=== PATIENT | male | born 1985 | race Two or more races ===

== ENCOUNTER 2018-11-11 13:54 | Emergency (ER) | payer SELFPAY ==
[~2018-11-11] VITALS: Ht 167.6 cm; Wt 102.1 kg
[2018-11-11 15:26] VITALS: BP 132/85
== END 2018-11-11 16:38 | disposition home or self-care (01) ==
LOC: ER 13:54
DX: S39.012A Strain of muscle, fascia and tendon of lower back, initial encounter (principal); V43.52XA Car driver injured in collision with other type car in traffic accident, initial encounter; Y93.89 Activity, other specified; Y99.8 Other external cause status; Y92.410 Unspecified street and highway as the place of occurrence of the external cause

== ENCOUNTER → 2018-11-11 | Emergency (ER) | payer OTHER | END | disposition left against medical advice (07) | LOC: ER 01:18 | DX: Z04.1 Encounter for examination and observation following transport accident (principal); Z53.21 Procedure and treatment not carried out due to patient leaving prior to being seen by health care provider; V89.2XXA Person injured in unspecified motor-vehicle accident, traffic, initial encounter; Y93.89 Activity, other specified; Y99.8 Other external cause status; Y92.89 Other specified places as the place of occurrence of the external cause ==

== ENCOUNTER 2023-04-04 16:47 | Inpatient (IN) | payer OTHER ==
[~2023-04-04] VITALS: Ht 170.2 cm; Wt 112.4 kg
[2023-04-04 17:16] LABS: Basophils # (auto) 0.1 10 ^3/uL (0-0.2); Basophils % (auto) 0.5 % (0.0-2.0); Eosinophils # (auto) 0.4 10 ^3/uL (0-0.8); Eosinophils % (auto) 3.2 % (0.0-7.0); Hematocrit 50.2 % (41.0-53.0); Hemoglobin 16.4 g/dL (13.5-17.5); Lymphocytes # (auto) 3.8 10 ^3/uL (0.4-5.4); Lymphocytes % (auto) 30.4 % (10.0-50.0); Mean Corpuscular Hemoglobin 27.8 pg (28.0-32.0); Mean Corpuscular Hgb Conc. 32.7 g/dL (32.0-36.0); Mean Corpuscular Volume 84.9 fL (80.0-100.0); Monocytes # (auto) 0.8 10 ^3/uL (0-1.3); Monocytes % (auto) 6.1 % (0.0-12.0); Neutrophils # (auto) 7.5 10 ^3/uL (1.6-8.6); Neutrophils % (auto) 59.8 % (37.0-80.0); Nucleated Red Blood Cells % 0.2 %; Red Blood Cells 5.91 10^6/uL (4.5-5.90); Red Cell Distribution Width 14.7 % (11.8-14.3); White Blood Cell 12.5 10^3/uL (4.4-10.8)
[2023-04-04 17:31] LABS: Albumin 3.5 g/dL (3.4-5.0); BUN/Creatinine Ratio 16.2 (10.0-20.0); Calcium 8.7 mg/dL (8.5-10.1)
[2023-04-04 17:34] LABS: Bilirubin, Total 0.4 mg/dL (0.2-1.0); Total Protein 7.7 g/dL (6.4-8.2)
[2023-04-04] MEDS ORDERED: dilTIAZem 25 MG/5 ML VIAL IV ONE (18:15)
[2023-04-04] MEDS ORDERED: SODIUM CHLORIDE 0.9% 500 ML IV ONE (18:15)
[2023-04-04] MEDS: dilTIAZem 125mg/125ml BAG KIT 100 ML IV ONE ×2 (18:30→19:04)
[2023-04-04] MEDS ORDERED: dilTIAZem 125 MG/25ML INJ VIAL IV ONE (18:30)
[2023-04-04 20:53] LABS: Urine Bacteria NONE SEEN /hpf (None Seen); Urine Blood 1+ /uL (Negative); Urine Specific Gravity 1.019 (1.001-1.035); Urine WBC 2 /hpf (0 - 3)
[2023-04-04] MEDS ORDERED: HYDROcodone-ACET 5/325MG TAB PO PRN (21:15)
[2023-04-04] MEDS ORDERED: ACETAMINOPHEN 325 MG TAB PO PRN (21:15)
[2023-04-04] MEDS ORDERED: cefTRIAXone 1GM/50ML D5W 50 ML IV ONE (21:15)
[2023-04-04] MEDS ORDERED: DEXTROSE (50%) 50ML SYRG IV PRN (21:15)
[2023-04-04] MEDS ORDERED: MORPHINE SULFATE INJ 2 MG/ml SYRG IV PRN ×2 (21:15→23:30)
[2023-04-04] MEDS ORDERED: DOCUSATE SOD 100 MG CAP PO PRN (21:15)
[2023-04-04] MEDS ORDERED: ONDANSETRON HCL 4 MG/2 ML VIAL IV PRN (21:15)
[2023-04-04] MEDS ORDERED: hydrALAZINE HCL 20 MG/ML VL IV PRN (21:15)
[2023-04-04] MEDS: ACCU-CHEK COMFORT CURVE STRIP VI SCH (22:02)
[2023-04-04] MEDS: InsuLIN REG 1unit/0.01ml Soln (100units/ml) SC SCH (22:02)
[2023-04-04] MEDS: ATORVASTATIN 20 MG TAB PO SCH (22:38)
[2023-04-04] MEDS: SODIUM CHLOR 0.9% PF (SALINE LOCK) 10ML VIAL/SYR IV SCH (22:38)
[2023-04-04] MEDS ORDERED: NITROGLYCERIN 0.4 MG SL TAB SL PRN (23:30)
[2023-04-05] MEDS ORDERED: dilTIAZem 125mg/125ml BAG KIT 125 ML IV ONE (05:15)
[2023-04-05] MEDS ORDERED: dilTIAZem 125mg/125ml BAG KIT 100 ML IV SCH (05:45)
[2023-04-05] MEDS: SODIUM CHLOR 0.9% PF (SALINE LOCK) 10ML VIAL/SYR IV SCH ×3 (05:50→21:30)
[2023-04-05 06:14] LABS: Basophils # (auto) 0 10 ^3/uL (0-0.2); Basophils % (auto) 0.4 % (0.0-2.0); Eosinophils # (auto) 0.3 10 ^3/uL (0-0.8); Eosinophils % (auto) 2.8 % (0.0-7.0); Hematocrit 46.7 % (41.0-53.0); Hemoglobin 15.5 g/dL (13.5-17.5); Lymphocytes # (auto) 3.1 10 ^3/uL (0.4-5.4); Lymphocytes % (auto) 34.1 % (10.0-50.0); Mean Corpuscular Hemoglobin 28.1 pg (28.0-32.0); Mean Corpuscular Hgb Conc. 33.3 g/dL (32.0-36.0); Mean Corpuscular Volume 84.5 fL (80.0-100.0); Monocytes # (auto) 0.7 10 ^3/uL (0-1.3); Monocytes % (auto) 7.5 % (0.0-12.0); Neutrophils % (auto) 55.2 % (37.0-80.0); Nucleated Red Blood Cells % 0.1 %; Red Blood Cells 5.52 10^6/uL (4.5-5.90); Red Cell Distribution Width 14.3 % (11.8-14.3); White Blood Cell 9.1 10^3/uL (4.4-10.8)
[2023-04-05] MEDS: ACCU-CHEK COMFORT CURVE STRIP VI SCH ×4 (06:44→21:30)
[2023-04-05] MEDS: InsuLIN REG 1unit/0.01ml Soln (100units/ml) SC SCH ×4 (06:44→21:30)
[2023-04-05 06:45] LABS: Potassium 3.9 mmol/L (3.5-5.1)
[2023-04-05 06:58] LABS: Albumin 3.5 g/dL (3.4-5.0); BUN/Creatinine Ratio 18.2 (10.0-20.0); Bilirubin, Total 0.4 mg/dL (0.2-1.0); Calcium 8.3 mg/dL (8.5-10.1); Total Protein 6.8 g/dL (6.4-8.2)
[2023-04-05] MEDS: FAMOTIDINE (10MG/ML) 2ML VL IV SCH (09:37)
[2023-04-05] MEDS: ASPirin 81 mg TAB PO SCH (09:37)
[2023-04-05 19:26] LABS: Amphetamine Screen, Urine NEGATIVE (NEGATIVE); Barbiturate Scree,Urine NEGATIVE (NEGATIVE); Cannabinoid Screen, Urine NEGATIVE (NEGATIVE)
[2023-04-05 19:29] LABS: Alcohol, Urine < 3.0 mg/dL (0-10); Benzodiazephine Screen, Urine NEGATIVE (NEGATIVE); Cocaine Screen, Urine NEGATIVE (NEGATIVE); Opiate Scree,Urine NEGATIVE (NEGATIVE); Phencyclidine Screen, Urine NEGATIVE (NEGATIVE)
[2023-04-05] MEDS ORDERED: cefTRIAXone 1GM/50ML D5W 50 ML IV SCH (21:00)
[2023-04-05] MEDS: ATORVASTATIN 20 MG TAB PO SCH (21:25)
[2023-04-05 21:33] VITALS: BP 142/72
[2023-04-05 22:00] VITALS: BP 142/87
[2023-04-06] MEDS ORDERED: HYDR25TA4 PO (00:37)
[2023-04-06] MEDS ORDERED: LISI-716 PO (00:37)
[2023-04-06 05:00] VITALS: BP 123/82
[2023-04-06] MEDS: SODIUM CHLOR 0.9% PF (SALINE LOCK) 10ML VIAL/SYR IV SCH ×3 (05:47→21:28)
[2023-04-06] MEDS: ACCU-CHEK COMFORT CURVE STRIP VI SCH ×2 (06:13→11:35)
[2023-04-06] MEDS: InsuLIN REG 1unit/0.01ml Soln (100units/ml) SC SCH ×2 (06:13→11:30)
[2023-04-06 07:05] LABS: BUN/Creatinine Ratio 21.1 (10.0-20.0); Calcium 8.2 mg/dL (8.5-10.1); Magnesium 2.3 mg/dL (1.6-2.6); Potassium 3.6 mmol/L (3.5-5.1)
[2023-04-06 08:00] VITALS: BP 122/73
[2023-04-06 09:00] VITALS: BP 122/73
[2023-04-06] MEDS: FAMOTIDINE (10MG/ML) 2ML VL IV SCH (09:15)
[2023-04-06] MEDS: ASPirin 81 mg TAB PO SCH (09:15)
[2023-04-06] MEDS ORDERED: POTASSIUM CHL 20 Meq TABLET PO ONE (10:45)
[2023-04-06] MEDS ORDERED: AMIODARONE HCL 200 MG TAB PO ONE (10:45)
[2023-04-06] MEDS ORDERED: ENOXAPARIN SOD 30 MG/0.3 ML SYRINGE SC ONE (11:00)
[2023-04-06 11:39] LABS: Cholesterol 170 mg/dL (< 200); HDL Cholesterol 44 mg/dL (40-59); LDL Cholesterol 110 mg/dL (< 100); Triglycerides 112 mg/dL (< 150)
[2023-04-06 13:00] VITALS: BP 127/92
[2023-04-06] MEDS ORDERED: ACETAMINOPHEN 325 MG TAB PO PRN (16:00)
[2023-04-06 17:00] VITALS: BP 127/87
[2023-04-06] MEDS: ATORVASTATIN 20 MG TAB PO SCH (21:29)
[2023-04-06] MEDS: AMIODARONE HCL 200 MG TAB PO SCH (21:29)
[2023-04-06] MEDS: METOPROLOL TARTRATE 25 MG TAB PO SCH (21:29)
[2023-04-06 21:33] VITALS: BP 126/87
[2023-04-07 05:00] VITALS: BP 110/69
[2023-04-07] MEDS: SODIUM CHLOR 0.9% PF (SALINE LOCK) 10ML VIAL/SYR IV SCH ×2 (06:56→13:46)
[2023-04-07] MEDS ORDERED: ADENOSINE 94 MG in GIVE UN-DILUTED 0 ML IV ONE (07:45)
[2023-04-07 09:00] VITALS: BP 139/86
[2023-04-07] MEDS: METOPROLOL TARTRATE 25 MG TAB PO SCH (09:17)
[2023-04-07] MEDS: FAMOTIDINE (10MG/ML) 2ML VL IV SCH (09:17)
[2023-04-07] MEDS: ASPirin 81 mg TAB PO SCH (09:17)
[2023-04-07] MEDS: AMIODARONE HCL 200 MG TAB PO SCH (09:18)
[2023-04-07] MEDS ORDERED: ENOXAPARIN SOD 30 MG/0.3 ML SYRINGE SC SCH (10:00)
[2023-04-07 13:00] VITALS: BP 139/79
[2023-04-07] MEDS ORDERED: ATOR20TA50 PO (16:42)
[2023-04-07] MEDS ORDERED: MET25T PO (16:42)
[2023-04-07] MEDS ORDERED: AMIO200T4 PO (16:42)
[2023-04-07] MEDS ORDERED: ASPI-325 PO (16:42)
[2023-04-07 17:12] VITALS: BP 139/79
== END 2023-04-07 17:50 | disposition home or self-care (01) | DRG 310 ==
LOC: ER 16:47 → TELE 23:18 → DOU IN ICU 04-05 10:48 → TELE 04-05 10:51 → TELE-WESTW 04-05 20:58
PROVIDERS: ADMIT Nurse Practitioner Family; ATTEND Internal Medicine
DX: I48.0 Paroxysmal atrial fibrillation (principal); D72.829 Elevated white blood cell count, unspecified; E66.01 Morbid (severe) obesity due to excess calories; I11.9 Hypertensive heart disease without heart failure; R73.9 Hyperglycemia, unspecified; R73.03 Prediabetes; Z82.49 Family history of ischemic heart disease and other diseases of the circulatory system; Z68.38 Body mass index [BMI] 38.0-38.9, adult
CPT/HCPCS: 36415; 71046; 78452; 80048; 80053; 80061; 80307; 81001; 82962; 83036; 83735; 83880; 84439; 84443; 84484; 85025; 87040; 93005; 93017; 93306; 96361; 96365; 96366; 96367; 96375; 99291; G0378; J0153; J0696; J3490

== ENCOUNTER 2024-03-22 17:52 | Inpatient (IN) | payer OTHER ==
[~2024-03-22] VITALS: Ht 167.6 cm; Wt 114.8 kg
[~2024-03-22 17:52] MED LIST: AMIO200T13 PO; ASPI-325 PO; ATOR20TA50 PO; LISI10TA34 PO; MET25T PO
[2024-03-22 18:53] LABS: Urine Bacteria FEW /hpf (None Seen); Urine Blood 1+ /uL (Negative); Urine Clarity Clear (Clear); Urine Color Light-Yellow (Yellow); Urine Protein, UAD Negative (Negative); Urine Specific Gravity 1.025 (1.001-1.035); Urine Urobilinogen Normal (Negative); Urine WBC 1 /hpf (0 - 3)
[2024-03-22 19:05] LABS: Amphetamine Screen, Urine Neg (NEGATIVE); Barbiturate Scree,Urine Neg (NEGATIVE); Benzodiazephine Screen, Urine Neg (NEGATIVE); Cannabinoid Screen, Urine Neg (NEGATIVE); Cocaine Screen, Urine Neg (NEGATIVE); Opiate Scree,Urine Neg (NEGATIVE); Phencyclidine Screen, Urine Neg (NEGATIVE)
[2024-03-22] MEDS: ONDANSETRON ODT 4 MG TAB PO ONE (19:12)
[2024-03-22] MEDS: MORPHINE SULFATE INJ 2 MG/ml SYRG IM ONE (19:13)
[2024-03-22 19:27] LABS: Basophils # (auto) 0 10 ^3/uL (0-0.2); Basophils % (auto) 0.4 % (0.0-2.0); Eosinophils # (auto) 0.2 10 ^3/uL (0-0.8); Eosinophils % (auto) 1.7 % (0.0-7.0); Hematocrit 45.1 % (41.0-53.0); Hemoglobin 14.8 g/dL (13.5-17.5); Lymphocytes # (auto) 3.1 10 ^3/uL (0.4-5.4); Lymphocytes % (auto) 28.1 % (10.0-50.0); Mean Corpuscular Hemoglobin 27.7 pg (28.0-32.0); Mean Corpuscular Hgb Conc. 32.9 g/dL (32.0-36.0); Mean Corpuscular Volume 84.4 fL (80.0-100.0); Monocytes # (auto) 0.7 10 ^3/uL (0-1.3); Monocytes % (auto) 6.5 % (0.0-12.0); Neutrophils # (auto) 6.9 10 ^3/uL (1.6-8.6); Neutrophils % (auto) 63.3 % (37.0-80.0); Nucleated Red Blood Cells % 0.1 %; Red Blood Cells 5.35 10^6/uL (4.5-5.90); Red Cell Distribution Width 14.6 % (11.8-14.3); White Blood Cell 10.9 10^3/uL (4.4-10.8)
[2024-03-22 19:43] LABS: INR 0.97 (0.9-1.15); Partial Thromboplastin Time 27.6 SEC (24.5-34.5); Prothrombin Time 10.3 sec (9.3-11.8)
[2024-03-22 19:45] LABS: Alanine Aminotransferase 34 U/L (7-40); Albumin 4.5 g/dL (3.2-4.8); Alkaline Phosphatase 77 U/L (46-116); Anion Gap 6 (5-15); Aspartate Aminotransferase 20 U/L (13-40); BUN/Creatinine Ratio 21.3 (10.0-20.0); Blood Urea Nitrogen 19 mg/dL (9-23); Calcium 9.4 mg/dL (8.7-10.4); Carbon Dioxide 30 mmol/L (20-30); Chloride 105 mmol/L (98-107); Glucose 93 mg/dL (74-106); Lipase 55 U/L (12-53); Potassium 3.8 mmol/L (3.5-5.1); Sodium 141 mmol/L (136-145)
[2024-03-22 19:46] LABS: Bilirubin, Total 0.6 mg/dL (0.2-1.0); Total Protein 6.9 g/dL (5.7-8.2)
[2024-03-22] MEDS: IOHEXOL 350 MG/ML 100ML IJ ONE (20:36)
[2024-03-22] MEDS: ASPirin 81 mg TAB PO ONE (21:30)
[2024-03-22] MEDS ORDERED: NITROGLYCERIN 0.4 MG SL TAB SL PRN (22:00)
[2024-03-23] VITALS (7 sets, daily range): BP systolic 114–128; BP diastolic 50–82; PULSE 61–80; RESP 15–20; TEMP 97.6–98; O2SAT 91–93
[2024-03-23] MEDS: AMIODARONE HCL 200 MG TAB PO SCH (00:16)
[2024-03-23] MEDS: ATORVASTATIN 20 MG TAB PO SCH (00:20)
[2024-03-23] MEDS: METOPROLOL TARTRATE 25 MG TAB PO SCH (00:21)
[2024-03-23] MEDS: ONDANSETRON HCL 4 MG/2 ML VIAL IV PRN (00:21)
[2024-03-23] MEDS: MORPHINE SULFATE INJ 2 MG/ml SYRG IV PRN (00:22)
[2024-03-23 04:55] LABS: Chloride 107 mmol/L (98-107); Sodium 137 mmol/L (136-145)
[2024-03-23 04:56] LABS: Anion Gap 9 (5-15); Calcium 9.2 mg/dL (8.7-10.4); Carbon Dioxide 21 mmol/L (20-30)
[2024-03-23 05:01] LABS: BUN/Creatinine Ratio 13.4 (10.0-20.0); Blood Urea Nitrogen 11 mg/dL (9-23); Glucose 77 mg/dL (74-106)
[2024-03-23 11:26] LABS: Triglycerides 106 mg/dL (< 150)
[2024-03-23 11:27] LABS: LDL Cholesterol 114 mg/dL (< 100)
[2024-03-23 11:28] LABS: Cholesterol 174 mg/dL (< 200); HDL Cholesterol 51 mg/dL (40-59)
[2024-03-23] MEDS: ASPirin 81 mg TAB PO SCH (11:51)
[2024-03-23] MEDS ORDERED: FLEC1TAB PO (11:59)
[2024-03-23] MEDS: ACETAMINOPHEN 325 MG TAB PO PRN (12:13)
[2024-03-23] MEDS: HYDROcodone-ACET 5/325MG TAB PO PRN (17:03)
[2024-03-24] VITALS (8 sets, daily range): BP systolic 108–144; BP diastolic 43–77; PULSE 54–70; RESP 18–20; TEMP 97–98.6; O2SAT 92–98
[2024-03-24 07:49] LABS: Basophils # (auto) 0 10 ^3/uL (0-0.2); Basophils % (auto) 0.4 % (0.0-2.0); Eosinophils # (auto) 0.2 10 ^3/uL (0-0.8); Eosinophils % (auto) 3.1 % (0.0-7.0); Hemoglobin 15.7 g/dL (13.5-17.5); Lymphocytes # (auto) 1.8 10 ^3/uL (0.4-5.4); Lymphocytes % (auto) 28.5 % (10.0-50.0); Mean Corpuscular Hemoglobin 27.7 pg (28.0-32.0); Mean Corpuscular Hgb Conc. 32.8 g/dL (32.0-36.0); Mean Corpuscular Volume 84.5 fL (80.0-100.0); Monocytes # (auto) 0.6 10 ^3/uL (0-1.3); Monocytes % (auto) 8.5 % (0.0-12.0); Neutrophils # (auto) 3.8 10 ^3/uL (1.6-8.6); Neutrophils % (auto) 59.5 % (37.0-80.0); Nucleated Red Blood Cells % 0.2 %; Red Blood Cells 5.69 10^6/uL (4.5-5.90); Red Cell Distribution Width 14.7 % (11.8-14.3); White Blood Cell 6.5 10^3/uL (4.4-10.8)
[2024-03-24 07:57] LABS: Anion Gap 3 (5-15); Chloride 106 mmol/L (98-107); Potassium 4.2 mmol/L (3.5-5.1); Sodium 141 mmol/L (136-145)
[2024-03-24 07:58] LABS: Calcium 9.5 mg/dL (8.5-10.1)
[2024-03-24 08:02] LABS: BUN/Creatinine Ratio 14.5 (10.0-20.0); Blood Urea Nitrogen 12 mg/dL (9-23); Glucose 82 mg/dL (74-106)
[2024-03-24 08:08] LABS: Carbon Dioxide 32 mmol/L (20-30)
[2024-03-24] MEDS ORDERED: MELATONIN 5 MG TAB PO ONE (22:00)
[2024-03-25] VITALS (8 sets, daily range): BP systolic 114–138; BP diastolic 68–95; PULSE 59–66; RESP 16–20; TEMP 97.2–98; O2SAT 94–96
[2024-03-26] VITALS (8 sets, daily range): BP systolic 123–144; BP diastolic 65–95; PULSE 58–99; RESP 18–20; TEMP 97.3–98.3; O2SAT 90–96
[2024-03-27 01:00] VITALS: BP 107/70; PULSE 58; RESP 18; TEMP 97.6; O2SAT 94
[2024-03-27 04:57] VITALS: BP 111/63; PULSE 66; RESP 21; TEMP 97.7; O2SAT 94
[2024-03-27 08:05] LABS: Basophils # (auto) 0 10 ^3/uL (0-0.2); Basophils % (auto) 0.5 % (0.0-2.0); Eosinophils # (auto) 0.2 10 ^3/uL (0-0.8); Hematocrit 48.4 % (41.0-53.0); Hemoglobin 16.1 g/dL (13.5-17.5); Lymphocytes # (auto) 2.2 10 ^3/uL (0.4-5.4); Lymphocytes % (auto) 27.1 % (10.0-50.0); Mean Corpuscular Hemoglobin 28.4 pg (28.0-32.0); Mean Corpuscular Hgb Conc. 33.2 g/dL (32.0-36.0); Mean Corpuscular Volume 85.4 fL (80.0-100.0); Monocytes # (auto) 0.5 10 ^3/uL (0-1.3); Monocytes % (auto) 6.5 % (0.0-12.0); Neutrophils # (auto) 5.1 10 ^3/uL (1.6-8.6); Neutrophils % (auto) 62.9 % (37.0-80.0); Nucleated Red Blood Cells % 0.1 %; Red Blood Cells 5.67 10^6/uL (4.5-5.90); Red Cell Distribution Width 14.2 % (11.8-14.3); White Blood Cell 8.1 10^3/uL (4.4-10.8)
[2024-03-27 08:30] VITALS: PULSE 62; PULSE 65; RESP 14; O2SAT 94
[2024-03-27 08:35] VITALS: BP 133/83; PULSE 65; RESP 18; TEMP 97.8; O2SAT 97
[2024-03-27 08:35] LABS: Alanine Aminotransferase 23 U/L (7-40); Albumin 4.5 g/dL (3.2-4.8); Alkaline Phosphatase 73 U/L (46-116); Anion Gap 6 (5-15); Aspartate Aminotransferase 22 U/L (13-40); Bilirubin, Total 0.6 mg/dL (0.2-1.0); Blood Urea Nitrogen 10 mg/dL (9-23); Calcium 9.8 mg/dL (8.5-10.1); Carbon Dioxide 29 mmol/L (20-30); Chloride 106 mmol/L (98-107); Glucose 89 mg/dL (74-106); Potassium 4.2 mmol/L (3.5-5.1); Sodium 141 mmol/L (136-145); Total Protein 7.3 g/dL (5.7-8.2)
[2024-03-27 12:30] VITALS: BP 116/75; PULSE 68; RESP 18; TEMP 97.9; O2SAT 94
[2024-03-27] MEDS ORDERED: NAP500T PO (13:49)
[2024-03-27 14:38] VITALS: BP 115/70; PULSE 72; TEMP 97.6
== END 2024-03-27 16:00 | disposition home or self-care (01) | DRG 311 ==
LOC: ER 17:52 → TELE 21:58 → TELE-E-ADS 03-23 10:43 → TELE-WESTW 03-23 14:44
PROVIDERS: ADMIT Internal Medicine; ATTEND Internal Medicine
DX: I20.0 Unstable angina (principal); Z68.41 Body mass index [BMI] 40.0-44.9, adult; E66.01 Morbid (severe) obesity due to excess calories; E78.5 Hyperlipidemia, unspecified; I10 Essential (primary) hypertension; I48.0 Paroxysmal atrial fibrillation; Z82.49 Family history of ischemic heart disease and other diseases of the circulatory system; Z79.899 Other long term (current) drug therapy
CPT/HCPCS: 36415; 71045; 71275; 80048; 80053; 80061; 80307; 81001; 83690; 83880; 84484; 85025; 85379; 85610; 85730; 93005; 93306; 96372; G0378; J2405; Q0162

== ENCOUNTER 2024-08-30 09:35 | Inpatient (IN) | payer OTHER ==
[~2024-08-30] VITALS: Ht 170.2 cm; Wt 110.0 kg
[~2024-08-30 09:35] MED LIST changes: -AMIO200T13 PO; +FLEC1TAB PO; -LISI10TA34 PO; +NAP500T PO
[2024-08-30 10:01] LABS: Basophils # (auto) 0 10 ^3/uL (0-0.2); Basophils % (auto) 0.5 % (0.0-2.0); Eosinophils # (auto) 0.2 10 ^3/uL (0-0.8); Hematocrit 48.1 % (41.0-53.0); Hemoglobin 16.2 g/dL (13.5-17.5); Lymphocytes # (auto) 2.6 10 ^3/uL (0.4-5.4); Lymphocytes % (auto) 28.7 % (10.0-50.0); Mean Corpuscular Hemoglobin 29.1 pg (28.0-32.0); Mean Corpuscular Hgb Conc. 33.7 g/dL (32.0-36.0); Mean Corpuscular Volume 86.3 fL (80.0-100.0); Monocytes # (auto) 0.6 10 ^3/uL (0-1.3); Monocytes % (auto) 6.8 % (0.0-12.0); Neutrophils # (auto) 5.6 10 ^3/uL (1.6-8.6); Platelet Count (auto) 271 10^3/uL (140-450); Red Blood Cells 5.57 10^6/uL (4.5-5.90); Red Cell Distribution Width 14.8 % (11.8-14.3)
[2024-08-30 10:17] LABS: Alanine Aminotransferase 40 U/L (7-40); Albumin 4.4 g/dL (3.2-4.8); Alkaline Phosphatase 68 U/L (46-116); Anion Gap 9 (5-15); Aspartate Aminotransferase 29 U/L (13-40); BUN/Creatinine Ratio 18.5 (10.0-20.0); Blood Urea Nitrogen 15 mg/dL (9-23); Calcium 9.9 mg/dL (8.7-10.4); Carbon Dioxide 25 mmol/L (20-31); Chloride 111 mmol/L (98-107); Glucose 103 mg/dL (74-106); Potassium 4.2 mmol/L (3.5-5.1); Sodium 145 mmol/L (136-145)
[2024-08-30 10:18] LABS: Bilirubin, Total 0.5 mg/dL (0.2-1.0); Total Protein 7.1 g/dL (5.7-8.2)
[2024-08-30] MEDS ORDERED: MORPHINE SULFATE INJ 2 MG/ml SYRG IV PRN (12:15)
[2024-08-30] MEDS ORDERED: ONDANSETRON HCL 4 MG/2 ML VIAL IV PRN (12:15)
[2024-08-30] MEDS ORDERED: NITROGLYCERIN 0.4 MG SL TAB SL PRN (12:15)
[2024-08-30] MEDS ORDERED: ACETAMINOPHEN 325 MG TAB PO PRN (12:15)
[2024-08-30 13:10] VITALS: PULSE 67; RESP 18; O2SAT 96
[2024-08-30 14:58] LABS: Urine Bacteria None Seen /hpf (None Seen)
[2024-08-30 15:23] LABS: Urine Blood 1+ /uL (Negative); Urine Budding Yeast OCCASIONAL /hpf (None Seen); Urine Clarity Clear (Clear); Urine Color Yellow (Yellow); Urine Mucus FEW (None Seen); Urine Protein, UAD TRACE (Negative); Urine Urobilinogen Normal (Negative); Urine WBC 2 /hpf (0 - 3); Urine pH 5.5 (5.0-9.0)
[2024-08-30 16:22] LABS: LDL Cholesterol 149 mg/dL (< 100); Triglycerides 179 mg/dL (< 150)
[2024-08-30 16:23] LABS: Cholesterol 211 mg/dL (< 200); HDL Cholesterol 53 mg/dL (40-59)
[2024-08-30 18:16] VITALS: BP 138/89; PULSE 67; RESP 17; TEMP 98; O2SAT 96
[2024-08-30 20:00] VITALS: PULSE 74; RESP 20
[2024-08-30 21:00] VITALS: BP 117/72; PULSE 68; RESP 20; TEMP 97.5; O2SAT 94
[2024-08-30] MEDS ORDERED: METOPROLOL TARTRATE 25 MG TAB PO SCH (22:00)
[2024-08-30] MEDS: METOPROLOL TARTRATE 25 MG TAB PO SCH (22:44)
[2024-08-30] MEDS: ATORVASTATIN 20 MG TAB PO SCH (22:45)
[2024-08-30] MEDS: FLECAINIDE ACETATE 50 MG TAB PO SCH (22:45)
[2024-08-31] VITALS (13 sets, daily range): BP systolic 114–138; BP diastolic 66–92; PULSE 60–74; RESP 14–20; TEMP 97.8–98.1; O2SAT 92–96
[2024-08-31 06:16] LABS: Basophils # (auto) 0 10 ^3/uL (0-0.2); Basophils % (auto) 0.4 % (0.0-2.0); Eosinophils # (auto) 0.3 10 ^3/uL (0-0.8); Hemoglobin 15.6 g/dL (13.5-17.5); Lymphocytes # (auto) 2.6 10 ^3/uL (0.4-5.4); Lymphocytes % (auto) 27.1 % (10.0-50.0); Mean Corpuscular Hemoglobin 29.2 pg (28.0-32.0); Mean Corpuscular Hgb Conc. 33.9 g/dL (32.0-36.0); Mean Corpuscular Volume 86.2 fL (80.0-100.0); Monocytes # (auto) 0.8 10 ^3/uL (0-1.3); Monocytes % (auto) 8.2 % (0.0-12.0); Neutrophils # (auto) 5.8 10 ^3/uL (1.6-8.6); Neutrophils % (auto) 61.3 % (37.0-80.0); Platelet Count (auto) 247 10^3/uL (140-450); Red Blood Cells 5.34 10^6/uL (4.5-5.90); Red Cell Distribution Width 14.7 % (11.8-14.3); White Blood Cell 9.5 10^3/uL (4.4-10.8)
[2024-08-31 06:26] LABS: INR 0.95 (0.9-1.15); Partial Thromboplastin Time 27.1 SEC (24.5-34.5); Prothrombin Time 10.1 sec (9.3-11.8)
[2024-08-31 06:34] LABS: Anion Gap 7 (5-15); Carbon Dioxide 27 mmol/L (20-31); Chloride 108 mmol/L (98-107); Potassium 3.8 mmol/L (3.5-5.1); Sodium 142 mmol/L (136-145)
[2024-08-31 06:36] LABS: Calcium 9.4 mg/dL (8.7-10.4)
[2024-08-31 06:40] LABS: BUN/Creatinine Ratio 15.8 (10.0-20.0); Blood Urea Nitrogen 12 mg/dL (9-23); Glucose 93 mg/dL (74-106)
[2024-08-31] MEDS: ASPirin-EC 81 mg tab PO SCH (11:08)
[2024-08-31] MEDS: IODIXANOL 320MG/ML 100ML BTL IV ONE (14:18)
[2024-08-31] MEDS: LIDOCAINE 2%HCL (LOCAL ANESTH.) INJ 20ML MDV ONE (14:20)
[2024-08-31] MEDS: SODIUM CHL 0.9% 0 ML ONE (14:20)
[2024-08-31] MEDS: MIDAZOLAM HCL 2MG/2ML 2ml VIAL (1mg/ml) ONE (14:20)
[2024-08-31] MEDS: fentaNYL CITRATE 100 MCG/2 ML VL ONE (14:20)
[2024-08-31] MEDS: HEPARIN SODIUM (PORCINE) 5000 UNITS/ML 1ML VIAL ONE (14:20)
[2024-08-31] MEDS: ANGIOMAX 250 MG VIAL IV ONE (14:20)
[2024-08-31] MEDS: VERAPAMIL 2.5MG/ML INJ 2ML VIAL IV ONE (14:22)
[2024-09-01 01:00] VITALS: BP 123/69; PULSE 65; RESP 20; TEMP 97.5; O2SAT 96
[2024-09-01 05:00] VITALS: BP 125/79; PULSE 68; RESP 20; TEMP 97.7; O2SAT 96
[2024-09-01 06:30] LABS: Alanine Aminotransferase 38 U/L (7-40); Albumin 4.3 g/dL (3.2-4.8); Alkaline Phosphatase 69 U/L (46-116); Anion Gap 7 (5-15); Aspartate Aminotransferase 19 U/L (13-40); BUN/Creatinine Ratio 12.9 (10.0-20.0); Blood Urea Nitrogen 11 mg/dL (9-23); Calcium 9.3 mg/dL (8.7-10.4); Carbon Dioxide 27 mmol/L (20-31); Chloride 105 mmol/L (98-107); Glucose 93 mg/dL (74-106); Sodium 139 mmol/L (136-145)
[2024-09-01 06:31] LABS: Bilirubin, Total 0.6 mg/dL (0.2-1.0)
[2024-09-01 08:00] VITALS: PULSE 64; PULSE 66; RESP 15
[2024-09-01 09:13] VITALS: BP 123/78; PULSE 66; RESP 16; TEMP 97.7; O2SAT 97
[2024-09-01 11:28] VITALS: BP 123/78; PULSE 66; RESP 16; TEMP 97.7; O2SAT 97
[2024-09-01 13:00] VITALS: BP 115/68; PULSE 74; RESP 16; TEMP 98.2; O2SAT 95
== END 2024-09-01 14:30 | disposition home or self-care (01) | DRG 287 ==
LOC: ER 09:35 → TELE 12:04 → TELE-E-ADS 17:50
PROVIDERS: ADMIT Registered Nurse General Practice; ATTEND Family Medicine
PROC: 4A023N7 Measurement of Cardiac Sampling and Pressure, Left Heart, Percutaneous Approach (ICD-10-PCS; principal; 2024-08-31)
PROC: B211YZZ Fluoroscopy of Multiple Coronary Arteries using Other Contrast (ICD-10-PCS; 2024-08-31)
DX: R07.89 Other chest pain (principal); I50.32 Chronic diastolic (congestive) heart failure; E66.9 Obesity, unspecified; I48.0 Paroxysmal atrial fibrillation; G47.33 Obstructive sleep apnea (adult) (pediatric); R73.03 Prediabetes; E78.00 Pure hypercholesterolemia, unspecified; I11.0 Hypertensive heart disease with heart failure; Z82.49 Family history of ischemic heart disease and other diseases of the circulatory system; Z68.38 Body mass index [BMI] 38.0-38.9, adult; Z79.899 Other long term (current) drug therapy
CPT/HCPCS: 36415; 71046; 80048; 80053; 80061; 81001; 83036; 83880; 84443; 84484; 85025; 85610; 85730; 93005; 93306; 93458; 99152; G0378; J2250; Q9967

== ENCOUNTER 2025-03-06 14:57 | Emergency (ER) | payer OTHER ==
[~2025-03-06] VITALS: Ht 170.2 cm; Wt 111.8 kg
--- NOTE | 2025-03-06 15:44 | ED.PDOC ---
HPI Comments Eduardo chest pain HPI: Poor Historian. 40-year-old male presents to emergency department for evaluation of midsternal chest pain radiating to bilateral upper extremities as numbness and tingling sensation. This happened at rest. Symptoms are constant. No other associated symptoms. Patient has a cardiac stress test six months ago that was normal and an heart angiogram that was also normal in the last six months. Patient was compliant with his medications. Past Medical History: Atrial fibrillation, hyperlipidemia Past Surgical History: Cardiac stress test, heart angiogram REVIEW OF SYSTEMS: CONSTITUTIONAL: Denies acute: fever, diaphoresis, chills, generalized weakness. HEAD: Denies acute: headache, photophobia Eyes: Denies acute: Double vision, vision loss, eye pain, eye discharge. EARS: Denies acute: tinnitus, hearing loss, ear discharge, ear pain, THROAT: Denies acute: sore throat, swelling, difficulty swallowing , pain with swallowing, change in voice. NECK: Denies acute: neck pain, neck swelling, stiff neck. HEART: Denies acute : , palpitations, LUNGS: Denies acute: SOB, wheezing, cough, hemoptysis ABDOMEN: Denies acute: abdominal pain, Nausea, Vomiting, diarrhea, melena , hematemesis, hematochezia SKIN: Denies acute: rash, redness, lesions, itchiness. EXTREMITIES: Denies acute: calf pain, , , weakness, denies pain in extremity. Denies acute: Low back pain. Neuro: Denies acute: focal neurological deficit, motor or sensory focal neurological deficit, tremors, seizure like activity, confusion, dizziness, change in mental status, loss of bowel or bladder function, cauda equina like symptoms. : Denies acute: dysuria, hematuria, flank pain, increase in urinary frequency. PSYCH: Denies acute: hallucination, suicidal ideation, homicidal ideation. PHYSICAL EXAM: General: -----mild---acute distress, awake and alert. Head: normocephalic, atraumatic. Neck: supple, trachea is midline, no swelling. Throat: Normal phonation. Eyes:, no erythema, no purulent discharge, no proptosis, no icterus. Heart: regular rate, regular rhythm, no significant murmur appreciated. Lungs: no apparent respiratory distress, Able to speak in full sentences. No wheezing, no rhonchi, no crackles. No stridors Clear to auscultation bilaterally. Abdomen: non tender to palpation, non distended, soft, no guarding, no rebound, + bowel sounds. Neuro: Awake, Alert, oriented to name, self, situation, follows commands GCS=15. Speech is normal. Skin: no petechia, no purpura, no cyanosis, non-pale, not jaundice. Lower extremities: --no - Pitting edema no deformity, no focal swelling, no calf TTP. Makes eye contact. moves all four extremities. Face: no apparent facial droop. Ambulating in the ED independently. ED COURSE: Chief Complaint: Chest Pain Time Seen by MD: 15:08 Primary Care Provider: DAVID Reviewed Notes: Nurses Notes, Medications, Allergies Allergies: Coded Allergies: No Known Drug Allergy (Verified Allergy, Unknown, 04/20/24) Uncoded Allergies: IV CONTRAST (Allergy, Intermediate, 03/06/25) Home Meds Active Scripts Naproxen (NAPROSYN TABLET) 500 Mg Tb, 1 TAB PO BID for 4 Days, #8 TAB 1 Refill Prov:SETH ANDRES RESIDENT 03/27/24 Metoprolol Tartrate (Lopressor) 25 Mg Tb, 12.5 MG PO BID for 30 Days, #30 TAB Prov:PATRICE HOLLAND MD 04/07/23 Atorvastatin Calcium (ATORVASTATIN CALCIUM) 20 Mg Tab, 20 MG PO HS for 30 Days, #30 TAB Prov:PATRICE HOLLAND MD 04/07/23 Aspirin (Aspirin Low Dose) 81 Mg Tab, 81 MG PO DAILY for 30 Days, #30 TAB Prov:PATRICE HOLLAND MD 04/07/23 Reported Medications Flecainide Acetate (Flecainide Acetate) 50 Mg Tab, 1 TAB PO 03/23/24 Information Source: Patient Past Medical History PAST MEDICAL HISTORY: AFIB, High Lipids, HTN Surgical History: Denies all surgeries Family History Family History: Unknown Social History Smoker: Non-Smoker Alcohol: Denies ETOH Use Drugs: Denies Drug Use Lives In: Home Was a procedure done? Was a procedure done?: No CP Differential Dx Differential Diagnosis: N/A Differential Diagnosis: Other (Ddx include but not limitied to gastritis, musculoskeletal pain, radiculopathy, atypical chest pain, dissection, aneurysm, ACS, unstable angina, hiatal hernia, GERD, anxiety, costochondritis, PE, pneumothroax, neoplasm, cardiac ischemia, drug abuse, anemia.) X-Ray, Labs, Meds, VS Vital Signs Date Time Temp Pulse Resp B/P (MAP) Pulse Ox O2 Delivery O2 Flow Rate FiO2 03/06/25 20:02 98.1 70 18 140/72 (94) 95 98.1 03/06/25 20:02 70 18 95 Room Air* 0 21 03/06/25 18:56 71 18 128/86 (100) 93 03/06/25 18:55 128/86 03/06/25 17:59 72 03/06/25 17:47 160/76 03/06/25 17:42 72 18 160/76 (104) 93 03/06/25 17:42 72 18 93 Room Air* 0 21 03/06/25 15:55 75 03/06/25 15:02 75 03/06/25 15:00 98.5 77 16 138/86 (103) 94 98.5 Lab Test 03/06/25 18:15 03/06/25 16:13 03/06/25 15:03 Range/Units Troponin I High Sensitivity 4 5 4 </=54 ng/L White Blood Count 10.4 4.4-10.8 10^3/uL Red Blood Count 5.63 4.5-5.90 10^6/uL Hemoglobin 16.3 13.5-17.5 g/dL Hematocrit 48.9 41.0-53.0 % Mean Corpuscular Volume 86.8 80.0-100.0 fL Mean Corpuscular Hemoglobin 28.9 28.0-32.0 pg Mean Corpuscular Hemoglobin Concent 33.3 32.0-36.0 g/dL Red Cell Distribution Width 14.2 11.8-14.3 % Platelet Count 244 140-450 10^3/uL Mean Platelet Volume 8.8 6.9-10.8 fL Neutrophils (%) (Auto) 60.6 37.0-80.0 % Lymphocytes (%) (Auto) 28.2 10.0-50.0 % Monocytes (%) (Auto) 8.6 0.0-12.0 % Eosinophils (%) (Auto) 2.2 0.0-7.0 % Basophils (%) (Auto) 0.4 0.0-2.0 % Neutrophils # (Auto) 6.3 1.6-8.6 10 ^3/uL Lymphocytes # (Auto) 2.9 0.4-5.4 10 ^3/uL Monocytes # (Auto) 0.9 0-1.3 10 ^3/uL Eosinophils # (Auto) 0.2 0-0.8 10 ^3/uL Basophils # (Auto) 0 0-0.2 10 ^3/uL Nucleated Red Blood Cells 0.0 % Sodium Level 142 136-145 mmol/L Potassium Level 3.9 3.5-5.1 mmol/L Chloride Level 107 98-107 mmol/L Carbon Dioxide Level 26 20-31 mmol/L Anion Gap 9 5-15 Blood Urea Nitrogen 17 9-23 mg/dL Creatinine 0.91 0.700-1.30 mg/dL Glomerular Filtration Rate Calc 109 >90 mL/min BUN/Creatinine Ratio 18.7 10.0-20.0 Serum Glucose 85 74-106 mg/dL Calcium Level 9.6 8.7-10.4 mg/dL Total Bilirubin 0.3 0.2-1.0 mg/dL Aspartate Amino Transferase (AST) 28 13-40 U/L Alanine Aminotransferase (ALT) 50 H 7-40 U/L Alkaline Phosphatase 81 46-116 U/L Total Protein 7.2 5.7-8.2 g/dL Albumin 4.6 3.2-4.8 g/dL Current Medications Medications (Trade) Dose Ordered Sig/Jaspreet Route Start Time Stop Time Status Last Admin Aspirin (Ecotrin Enteric Coated Tablet) 325 mg ONCE ONCE PO 03/06/25 15:45 03/06/25 15:46 DC 03/06/25 17:46 Nitroglycerin (Ntrostat Sublingual) 0.4 mg ONCE ONCE SL 03/06/25 15:45 03/06/25 15:46 DC 03/06/25 17:47 [facility] [id number] [place] [id number] Ph: [phone] DIAGNOSTIC IMAGING Diagnostic Imaging Report : [id number] Signed PATIENT: EDUARDOTON GOMEZ ACCT: [id number] UNIT: [id number] : 1985 LOC: ER ROOM / BED: / AGE / SEX: 40 / M ADM STATUS: REG ER SERVICE [id number] ORDERING PHYSICIAN: VENECIA AVILEZ DO PROCEDURE(s): CXRP - CHEST PORTABLE REASON: cp ORDER NUMBER(s): [id number], ACCESSION NUMBER(s): [id number] INDICATION: cp TECHNIQUE: Frontal view of the chest. COMPARISON: XY CHEST PORTABLE on DOS: 03/22/24 FINDINGS: The heart and mediastinal contours are grossly unremarkable. There is no evidence of pleural disease. The lungs are clear. The bony structures of the chest are intact without fracture. IMPRESSION: 1. No evidence of acute disease. ATED BY: MAXX WANG MD DICTATED DATE/TIME: 03/06/25 1554 SIGNED BY: MAXX WANG MD SIGNED DATE/TIME: 03/06/25 1554 CC: Time of 1ST Reevaluation: 15:08 Reevaluation 1ST: Unchanged Patient Education/Counseling: Diagnosis, Treatment Family Education/Counseling: No Family Present Comments Patient presented with the above HPI.----cardiac--workup was initiated. patient was found with the above mentioned diagnosis. the following medications were ordered: please refer to order lists of meds and tests obtained by myself Dr. Avilez. Patient ED course and VS have been stabilized. Patient has been reassessed in the ED and remained in a stable condition. Pertinent incidental findings were discussed with the patient and/or family. Patient/family voices understanding and is agreeable with plan. Patient has been observed in the ED adequate length of time to insure improvement/stability. Escalation of care considered: Consideration of escalation to observation or admission Heart score is low Patient was DISCHARGED home in a stable condition. All the reports of any imaging studies that were ordered by myself were reviewed by myself. Departure 1 Departure Time of Disposition: 19:38 Impression: Primary Impression: Chest pain Disposition: 01 HOME / SELF CARE / HOMELESS Condition: Stable Discharged With: Self Critical Care Note Critical Care Time?: No Heart Score Heart Score: Heart Score Response (Comments) Value History Slightly Suspicious 0 EKG Normal 0 Age <45 0 Risk Factors 1 or 2 risk factors 1 Troponin Normal limit 0 Total 1 I personally scribed for VENECIA AVILEZ DO ([email or web address]) on 03/06/25 at 19:47. Electronically submitted by Ton Smith ([email or web address]). VENECIA AVILEZ DO Mar 06, 2025 15:44
--- NOTE | 2025-03-06 15:56 | DVH ---
INDICATION: cp TECHNIQUE: Frontal view of the chest. COMPARISON: XY CHEST PORTABLE on DOS: 03/22/24 FINDINGS: The heart and mediastinal contours are grossly unremarkable. There is no evidence of pleural diseas e. The lungs are clear. The bony structures of the chest are intact without fracture. IMPRESSION: 1. No evidence of acute disease.
--- NOTE | 2025-03-06 15:56 | ECG ---
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
[2025-03-06 16:32] LABS: Basophils # (auto) 0 10 ^3/uL (0-0.2); Basophils % (auto) 0.4 % (0.0-2.0); Eosinophils # (auto) 0.2 10 ^3/uL (0-0.8); Eosinophils % (auto) 2.2 % (0.0-7.0); Hematocrit 48.9 % (41.0-53.0); Hemoglobin 16.3 g/dL (13.5-17.5); Lymphocytes # (auto) 2.9 10 ^3/uL (0.4-5.4); Lymphocytes % (auto) 28.2 % (10.0-50.0); Mean Corpuscular Hemoglobin 28.9 pg (28.0-32.0); Mean Corpuscular Hgb Conc. 33.3 g/dL (32.0-36.0); Mean Corpuscular Volume 86.8 fL (80.0-100.0); Monocytes # (auto) 0.9 10 ^3/uL (0-1.3); Monocytes % (auto) 8.6 % (0.0-12.0); Neutrophils # (auto) 6.3 10 ^3/uL (1.6-8.6); Neutrophils % (auto) 60.6 % (37.0-80.0); Platelet Count (auto) 244 10^3/uL (140-450); Red Blood Cells 5.63 10^6/uL (4.5-5.90); Red Cell Distribution Width 14.2 % (11.8-14.3); White Blood Cell 10.4 10^3/uL (4.4-10.8)
[2025-03-06 16:43] LABS: Albumin 4.6 g/dL (3.2-4.8); Alkaline Phosphatase 81 U/L (46-116); Anion Gap 9 (5-15); Aspartate Aminotransferase 28 U/L (13-40); BUN/Creatinine Ratio 18.7 (10.0-20.0); Bilirubin, Total 0.3 mg/dL (0.2-1.0); Blood Urea Nitrogen 17 mg/dL (9-23); Calcium 9.6 mg/dL (8.7-10.4); Carbon Dioxide 26 mmol/L (20-31); Chloride 107 mmol/L (98-107); Glucose 85 mg/dL (74-106); Potassium 3.9 mmol/L (3.5-5.1); Sodium 142 mmol/L (136-145); Total Protein 7.2 g/dL (5.7-8.2)
[2025-03-06 16:44] LABS: Alanine Aminotransferase 50 U/L (7-40)
[2025-03-06 17:42] VITALS: PULSE 72; RESP 18; O2SAT 93
[2025-03-06] MEDS: ASPirin-EC 325mg tab PO ONE (17:46)
[2025-03-06] MEDS: NITROGLYCERIN 0.4 MG SL TAB SL ONE (17:47)
--- NOTE | 2025-03-06 18:00 | ECG ---
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
[2025-03-06 20:02] VITALS: BP 140/72; PULSE 70; RESP 18; TEMP 98.1; O2SAT 95
--- NOTE | 2025-03-07 08:05 | ECG ---
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
== END 2025-03-06 20:02 | disposition home or self-care (01) ==
LOC: ER 14:57
DX: R07.89 Other chest pain (principal); R20.0 Anesthesia of skin; R20.2 Paresthesia of skin; I48.91 Unspecified atrial fibrillation; I10 Essential (primary) hypertension; E78.5 Hyperlipidemia, unspecified; Z79.82 Long term (current) use of aspirin; Z79.899 Other long term (current) drug therapy
CPT/HCPCS: 36415; 71045; 80053; 84484; 85025; 93005